=== PATIENT | male | born 1975 | race Caucasian/White ===

== ENCOUNTER 2018-09-19 15:34 | Outpatient (CLI) | payer BC ==
--- NOTE | 2018-09-19 19:45 | RAD ---
RIGHT KNEE FOUR VIEWS: INDICATIONS: Right knee pain. FINDINGS: There is moderate osteoarthritis. No fracture or dislocation. There is moderate joint capsular dist ention. IMPRESSION: 1. No acute fracture. 2. Moderate osteoarthritis and joint capsular distention. Correlate clinically. POS: TPC
== END 2018-09-19 15:35 | disposition home or self-care (01) ==
LOC: BICRAD 15:34
PROVIDERS: ATTEND Family Medicine
DX: M25.561 Pain in right knee (principal); M17.11 Unilateral primary osteoarthritis, right knee; M25.861 Other specified joint disorders, right knee

== ENCOUNTER 2020-04-23 12:06 | Day surgery (SDC) | payer BC ==
[2020-04-23] MEDS ORDERED: Sodium Chloride 0.9% 100 ML ONE (12:43)
[2020-04-23] MEDS ORDERED: Piperacillin/Tazobactam 3.375 GM VIAL ONE (12:43)
[2020-04-23] MEDS ORDERED: Lidocaine 1% w/Epinephrine 1:100K 20 ML VIAL ONE (12:51)
[2020-04-23] MEDS ORDERED: Bupivacaine PF 0.5% 30 ML VIAL ONE (12:51)
[2020-04-23] MEDS ORDERED: Fentanyl 100 MCG/2 ML VIAL ONE (12:57)
[2020-04-23] MEDS ORDERED: Midazolam HCl 2 mg/2 ml Vial ONE (12:57)
[2020-04-23] MEDS ORDERED: Glycopyrrolate 0.2 MG/ML 5 ML SYRINGE ONE (13:22)
[2020-04-23] MEDS ORDERED: Dexamethasone 20 MG/5 ML VIAL ONE (13:22)
[2020-04-23] MEDS ORDERED: Rocuronium Bromide 10 MG/ML (10ML VIAL) ONE (13:22)
[2020-04-23] MEDS ORDERED: Albuterol Sulfate HFA (OR ONLY) ONE (13:22)
[2020-04-23] MEDS ORDERED: PROPOFOL 200 MG/20 ML VIAL ONE (13:22)
[2020-04-23] MEDS ORDERED: Lidocaine 1% PF 5 ML VIAL ONE (13:22)
[2020-04-23] MEDS ORDERED: PHENYLEPHRINE-NS 100 MCG/ML 10 ML SYRINGE ONE (13:22)
[2020-04-23] MEDS ORDERED: PROPOFOL 20 ML ONE (13:48)
[2020-04-23] MEDS ORDERED: Ondansetron PF 4 MG/2 ML Vial ONE (14:37)
--- NOTE | 2020-04-23 14:39 | OP ---
DATE OF PROCEDURE: 04/23/2020 PREOPERATIVE DIAGNOSES: Acute chronic cholecystitis, history of laparoscopic sleeve gastrectomy, Dr. Taylor in 2012. PROCEDURE PERFORMED: Laparoscopic video cholecystectomy. Note, multiple large stones. ANESTHESIA: General, local of 0.5% Marcaine with epinephrine 30 mL mixed with 1% Xylocaine 20 mL, 40 mL mixture used. Leonardo used. DESCRIPTION OF PROCEDURE: The patient was taken to the operating room, where under general anesthesia, abdomen was clipped of hair, prepared with ChloraPrep and draped in routine fashion. Local anesthetic was infiltrated in the skin and subcutaneous tissue about the operative site. Infraumbilical incision was made and pneumoperitoneum to 15 mmHg was obtained with a Veress needle, replaced with a 5 port and video laparoscope inserted. Right lateral subcostal incision was made and a 5 port placed. Right subcostal midclavicular line incision made and a 5 port placed. Subxiphoid incision made right and an 11 port placed. The gallbladder was acutely inflamed, distended. I could not grasp it. It was decompressed, suctioned free and ten grasped, reflected cephalad. Liver appeared to be slightly fatty. Infundibulum was grasped at the lateral. Cystic artery and duct dissected free. Critical view obtained. Cystic artery and duct double clipped proximally, divided, and gallbladder dissected free from liver bed obtaining good hemostasis prior to division of final peritoneal attachments. Good hemostasis was noted. Leonardo was used in the liver bed in the shankar hepatis. Good hemostasis noted. Irrigant and pneumoperitoneum were evacuated. All instruments were removed. All skin incisions were approximated with subdermal 4-0 Monocryl and [place] glue applied. The patient tolerated the procedure well. Job ID: [id number]
--- NOTE | 2020-04-23 15:17 | HP ---
HISTORY OF PRESENT ILLNESS: Austin Ayon is a 45-year-old male with acute onset of pain last night, presented to the [place] [facility] this morning. CAT scan of abdomen and pelvis revealed multiple gallstones, normal bile duct caliber, normal liver function tests, and normal CBC. He was transferred over for laparoscopic cholecystectomy. ALLERGIES: HE REPORTED A PENICILLIN REACTION AT 1 YEARS OF AGE, BUT HE RECEIVED UNASYN AT [facility] WITHOUT REACTION AND RECEIVED ANOTHER DOSE OF ZOSYN HERE WITHOUT REACTION. SOCIAL HISTORY: Tobacco one pack per day. Alcohol occasionally. He works in [employer], [employer]. MEDICATIONS: Omeprazole daily. PAST SURGICAL HISTORY: Laparoscopic sleeve gastrectomy in 2012, preoperative weight 400 pounds, lost down to 238 pounds, current weight 268 pounds; tonsillectomy; and adenoidectomy. PAST MEDICAL HISTORY: Diabetes mellitus prior to sleeve gastrectomy, after successful weight loss this resolved. Occasional reflux for which he takes omeprazole. He had upper endoscopy years ago that was normal. REVIEW OF SYSTEMS: 10 point, noncontributory. FAMILY HISTORY: Noncontributory. PHYSICAL EXAMINATION: HEAD, EARS, EYES, NOSE, AND THROAT: Unremarkable. LUNGS: Clear to auscultation. CARDIAC: Regular rate and rhythm without murmur or gallop. ABDOMEN: Tenderness in right upper quadrant without guarding or rebound. Positive Lin sign. EXTREMITIES: Unremarkable. No ankle edema. NEUROLOGIC: Intact. No lymphadenopathy in neck, groin, or axilla. ASSESSMENT AND PLAN: Acute cholecystitis and cholelithiasis. Liver function tests are normal. Recommend laparoscopic video cholecystectomy. Risks and benefits discussed. He consents. Job ID: [id number]
== END 2020-04-23 15:55 | disposition home or self-care (01) ==
LOC: SDC 12:06
PROVIDERS: ATTEND Specialist
PROC: 0FT44ZZ Resection of Gallbladder, Percutaneous Endoscopic Approach (ICD-10-PCS; principal; 2020-04-23)
DX: K80.13 Calculus of gallbladder with acute and chronic cholecystitis with obstruction (principal)
CPT/HCPCS: 88304; J1100; J2001; J2250; J2405; J2543; J2704; J3010; J3490; S0020

== ENCOUNTER 2024-08-30 08:03 | Outpatient (CLI) | payer BC | END 2024-08-30 08:04 | disposition home or self-care (01) | LOC: SCSMRI 08:03 | PROVIDERS: ATTEND Podiatrist | DX: M76.61 Achilles tendinitis, right leg (principal); M77.31 Calcaneal spur, right foot; M92.61 Juvenile osteochondrosis of tarsus, right ankle; M19.071 Primary osteoarthritis, right ankle and foot; M77.51 Other enthesopathy of right foot and ankle; S86.011A Strain of right Achilles tendon, initial encounter ==